=== PATIENT | male | born 1965 | race American Indian/Alaskan Native ===

== ENCOUNTER 2017-11-25 09:04 | Outpatient (CLI) | payer OTHER ==
--- NOTE | 2017-11-25 19:19 | XRay Report ---
FINAL REPORT PROCEDURE: XR SPINE LUMBOSACRAL 2-3V TECHNIQUE: Lumbar spine radiographs, including AP, lateral, and lumbosacral spot views. CPT 18390 HISTORY: Neuropathy. Diabetes. Stroke. COMPARISON: No prior studies are available for comparison. FINDINGS: Alignment: Normal. Vertebral body heights/Disk spaces: Sacralization of L5. Small multilevel osteophytes. Mild L4-5 and L5-S1 disc space narrowing with endplate changes. Fracture(s): None. Facets: Normal. Bone mineralization: Normal. Other: Oval density measuring 13 x 5 mm in the left upper quadrant likely ingested capsule/pill. IMPRESSION: Mild degenerative changes of the lumbar spine.
--- NOTE | 2017-11-25 19:25 | XRay Report ---
FINAL REPORT PROCEDURE: XR KNEE BILAT 1-2V TECHNIQUE: Bilateral knee radiographs, AP and lateral views. HISTORY: Neuropathy. Diabetes. Stroke. COMPARISON: No prior studies are available for comparison. FINDINGS: Right Fracture (s) and/or Dislocation(s): None . Joint space(s): Mild medial and patellofemoral compartment narrowing with small osteophytes. Small patellar enthesophyte. Tibial eminence spurring. 4.5 mm density seen about the medial femoral condyle. Soft tissues: Normal. Bone mineralization: Mild osteopenia. Possible subtle periostitis about the proximal tibia. Foreign bodies: None. Left Fracture (s) and/or Dislocation(s): None . Joint space(s): Mild medial and patellofemoral compartment narrowing with small osteophytes. Small patellar enthesophyte. Tibial eminence spurring. Small joint effusion. Soft tissues: Normal. Bone mineralization: Mild osteopenia. Possible subtle periostitis about the proximal tibia. Foreign bodies: None. IMPRESSION: Relatively symmetric degenerative changes of the bilateral knees. Small left joint effusion. Consider Gage-Stieda lesion of the right knee. Mild osteopenia. Possible subtle periostitis about the proximal tibias bilaterally. Consider bone scan or MRI for further characterization if there is continued clinical concern including concern for subtle infectious/inflammatory or even neoplastic process and if the patient has no contraindication to MRI.
--- NOTE | 2017-11-25 19:28 | XRay Report ---
FINAL REPORT PROCEDURE: XR HIPS BILAT 2V W/PELVIS TECHNIQUE: Bilateral hip radiographs, 2 views each, including AP view of the pelvis. HISTORY: Neuropathy. Diabetes. Strokes. COMPARISON: No prior studies are available for comparison. FINDINGS: Fracture (s) and/or Dislocation(s): None . Joint space(s): Mild narrowing and osteophytes of the bilateral hip joints. Soft tissues: Normal. Bone mineralization: Mild osteopenia Foreign bodies: None. IMPRESSION: Mild osteopenia and degenerative changes of the bilateral hips.
== END 2017-11-25 09:05 | disposition home or self-care (01) ==
LOC: XRAY 09:04
PROVIDERS: ATTEND Internal Medicine
DX: M16.0 Bilateral primary osteoarthritis of hip (principal); M17.0 Bilateral primary osteoarthritis of knee; M85.88 Other specified disorders of bone density and structure, other site; M85.861 Other specified disorders of bone density and structure, right lower leg; M85.862 Other specified disorders of bone density and structure, left lower leg; M47.896 Other spondylosis, lumbar region; E11.40 Type 2 diabetes mellitus with diabetic neuropathy, unspecified; I10 Essential (primary) hypertension; R09.89 Other specified symptoms and signs involving the circulatory and respiratory systems; I63.9 Cerebral infarction, unspecified
CPT/HCPCS: 72100; 73521

== ENCOUNTER 2017-12-02 22:50 | Inpatient (IN) | payer OTHER ==
[2017-12-02 23:49] LABS: Basophils # (Auto) 0.1 K/mm3 (0.0-0.1); Basophils % (Auto) 0.9 % (0.0-1.8); Eosinophils # (Auto) 0.2 K/mm3 (0.0-0.4); Eosinophils % (Auto) 2.8 % (0.0-4.3); Hematocrit 42.2 % (35.5-45.6); Hemoglobin 13.7 gm/dl (11.8-15.2); Lymphocytes # (Auto) 2.7 K/mm3 (1.2-5.4); Lymphocytes % (Auto) 30.8 % (13.4-35.0); Mean Corpuscular HGB Conc 33 % (32-34); Mean Corpuscular Hemoglobin 29 pg (28-32); Mean Corpuscular Volume 89 fl (84-94); Monocytes # (Auto) 0.6 K/mm3 (0.0-0.8); Monocytes % (Auto) 6.7 % (0.0-7.3); Red Blood Count 4.74 M/mm3 (3.65-5.03); Red Cell Distribution Width 15.5 % (13.2-15.2)
[2017-12-02] MEDS ORDERED: NITRO-BID 2% TP ONE (23:54)
[2017-12-03 00:01] LABS: INR 0.84 (0.87-1.13); Platelet Count 205 K/mm3 (140-440)
[2017-12-03 00:02] LABS: Partial Thromboplastin Time 25.5 Sec. (24.2-36.6)
[2017-12-03 00:09] LABS: Alanine Aminotransferase 27 units/L (7-56); Albumin 4.1 g/dL (3.9-5); BUN/Creatinine Ratio 14; Blood Urea Nitrogen 20 mg/dL (9-20); Calcium 8.8 mg/dL (8.4-10.2); Hemolysis Index 8
--- NOTE | 2017-12-03 00:46 | XRay Report ---
FINAL REPORT EXAM: XR CHEST 1V AP HISTORY: chest pain TECHNIQUE: An AP upright view the chest was submitted. FINDINGS: There is elevation the right hemidiaphragm. The heart is mildly enlarged. The lungs are not congested. There are no localized infiltrates or effusions. The skeletal structures do not show any acute changes. IMPRESSION: Elevation of the right hemidiaphragm. No acute infiltrates or congestion.
--- NOTE | 2017-12-03 00:47 | Emergency Department Report ---
ED Chest Pain HPI - General Chief Complaint: Chest Pain Stated Complaint: HIGH BP Time Seen by Provider: 12/02/17 23:11 Source: patient, EMS, old records reviewed (neg stress test 05/2016) Mode of arrival: Stretcher Limitations: No Limitations - History of Present Illness Initial Comments: 52-year-old male with a past medical history hypertension, multiple TIAs, early cholesterol, and diabetes presents to the hospital complaining of chest pain and episode of slurred speech and headache. Patient states he was on the bus and while ambulating he began to have chest pressure described as a 50 pound weight on his chest. Associated shortness of breath, nausea, and vomited 1. Patient also states he had a frontal headache and a episode of slurred speech, and left face heaviness. He was evaluated by the fire truck at the scene and was suggested department if symptoms continued. Patient went to fire department and had a blood pressure 220/120. He states slurred speech has resolved. He continues to have moderate chest pain and heaviness feeling to left side of face. No facial asymmetry noted. Patient took his daily 2 tablets of aspirin 81 mg. - Related Data Previous Rx's Medication Instructions Recorded Last Taken Type AtorvaSTATin [Lipitor] 20 mg PO QHS #30 tablet 05/09/16 Unknown Rx Glimepiride [Amaryl] 1 mg PO QDDIAB #30 tablet 08/18/16 Unknown Rx Hydrochlorothiazide [HCTZ] 25 mg PO QDAY #30 tablet 08/18/16 Unknown Rx amLODIPine [Norvasc] 20 mg PO DAILY #30 tablet 08/18/16 Unknown Rx metFORMIN XR [Glucophage XR] 1,000 mg PO BID #60 tablet 08/18/16 Unknown Rx Allergies Allergy/AdvReac Type Severity Reaction Status Date / Time No Known Allergies Allergy Verified 01/17/15 04:54 Heart Score - HEART Score History: Slightly suspicious EKG: Non-specific Age: 45-65 Risk factors: > 3 risk factors or hx of atherosclerotic disease Troponin: < normal limit HEART Score: 4 ED Review of Systems ROS: Stated complaint: HIGH BP Other details as noted in HPI Comment: All other systems reviewed and negative ED Past Medical Hx - Past Medical History Hx Hypertension: Yes 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) Hx Congestive Heart Failure: No Hx Diabetes: No Hx Asthma: No Hx COPD: No - Social History Smoking Status: Never Smoker Substance Use Type: None - Medications Home Medications: Home Medications Medication Instructions Recorded Confirmed Last Taken Type AtorvaSTATin [Lipitor] 20 mg PO QHS #30 tablet 05/09/16 08/17/16 Unknown Rx Glimepiride [Amaryl] 1 mg PO QDDIAB #30 tablet 08/18/16 Unknown Rx Hydrochlorothiazide [HCTZ] 25 mg PO QDAY #30 tablet 08/18/16 Unknown Rx amLODIPine [Norvasc] 20 mg PO DAILY #30 tablet 08/18/16 Unknown Rx metFORMIN XR [Glucophage XR] 1,000 mg PO BID #60 tablet 08/18/16 Unknown Rx ED Physical Exam - General Limitations: No Limitations - Other Other exam information: General: No limitations, patient is alert in no acute distress Head exam: Atraumatic, normocephalic Eyes exam: Normal appearance, pupils equal reactive to light, extraocular movements intact ENT: Moist mucous membrane, normal oropharynx Neck exam: Normal inspection, full range of motion, no meningismus nontender Respiratory exam: Clear to auscultation bilateral, no wheezes, rales, crackles Cardiovascular: Normal rate and rhythm, normal heart sounds Abdomen: Soft, nondistended, and nontender, with normal bowel sounds, no rebound, or guarding Extremity: Full range of motion normal inspection no deformity Back: Normal Inspection, full range of motion, no tenderness Neurologic: Alert, oriented x3, cranial nerves intact, no facial droop, see NIH stroke scale Psychiatric: normal affect, normal mood Skin: Warm, dry, intact ED Course Vital Signs 12/02/17 12/03/17 12/03/17 23:34 00:57 01:42 Temperature 98.8 F Pulse Rate 58 L 82 84 Respiratory 20 20 Rate Blood Pressure 167/94 168/107 Blood Pressure 167/87 [Left] O2 Sat by Pulse 98 98 Oximetry - Reevaluation(s) Reevaluation #1: 12/03/17 02:04 stable, nitro paste and additional asa given KACIE score - Kacie Score Age > 65: (0) No Aspirin use within the Past 7 Days: (1) Yes 3 or more CAD Risk Factors: (1) Yes 2 or more Angina events in past 24 hrs: (1) Yes Known CAD with more than 50% Stenosis: (0) No Elevated Cardiac Markers: (0) No ST Deviation Greater than 0.5mm: (0) No KACIE Score: 3 ED Medical Decision Making - Lab Data Result diagrams: 12/02/17 23:25 12/02/17 23:25 Lab Results 12/02/17 12/02/17 12/02/17 Range/Units 23:25 23:25 23:25 WBC 8.8 (4.5-11.0) K/mm3 RBC 4.74 (3.65-5.03) M/mm3 Hgb 13.7 (11.8-15.2) gm/dl Hct 42.2 (35.5-45.6) % MCV 89 (84-94) fl MCH 29 (28-32) pg MCHC 33 (32-34) % RDW 15.5 H (13.2-15.2) % Plt Count 205 (140-440) K/mm3 Lymph % (Auto) 30.8 (13.4-35.0) % Toole % (Auto) 6.7 (0.0-7.3) % Eos % (Auto) 2.8 (0.0-4.3) % Baso % (Auto) 0.9 (0.0-1.8) % Lymph # 2.7 (1.2-5.4) K/mm3 Toole # 0.6 (0.0-0.8) K/mm3 Eos # 0.2 (0.0-0.4) K/mm3 Baso # 0.1 (0.0-0.1) K/mm3 Seg Neutrophils % 58.8 (40.0-70.0) % Seg Neutrophils # 5.2 (1.8-7.7) K/mm3 PT 11.9 L (12.2-14.9) Sec. INR 0.84 L (0.87-1.13) APTT 25.5 (24.2-36.6) Sec. Sodium 144 (137-145) mmol/L Potassium 4.1 (3.6-5.0) mmol/L Chloride 104.8 (98-107) mmol/L Carbon Dioxide 25 (22-30) mmol/L Anion Gap 18 mmol/L BUN 20 (9-20) mg/dL Creatinine 1.4 (0.8-1.5) mg/dL Estimated GFR > 60 ml/min BUN/Creatinine Ratio 14 % Glucose 185 H (75-100) mg/dL Calcium 8.8 (8.4-10.2) mg/dL Magnesium 1.90 (1.7-2.3) mg/dL Total Bilirubin < 0.20 (0.1-1.2) mg/dL AST 24 (5-40) units/L ALT 27 (7-56) units/L Alkaline Phosphatase 78 (35-129) units/L Troponin T < 0.010 (0.00-0.029) ng/mL Total Protein 6.7 (6.3-8.2) g/dL Albumin 4.1 (3.9-5) g/dL Albumin/Globulin Ratio 1.6 % - EKG Data -: EKG Interpreted by Me (Leslie) EKG shows normal: sinus rhythm, axis (qrs axis -54), QRS complexes (96), ST-T waves (lat and inv t inv) Rate: normal (90) - EKG Data When compared to previous EKG there are: no significant change (ekg's in past some have lat t wave inversions and borderline t waves inf leads) - Radiology Data Radiology results: report reviewed Read by radiologist Chest x-ray: Elevated right hemidiaphragm no acute findings ct head: IMPRESSION: No evidence of acute stroke or hemorrhage. Remote lacunar infarct noted just above the right thalamus. Bilateral maxillary sinus disease. - Medical Decision Making Plan to admit patient to the hospital for on control of hypertension despite medication noncompliance. Also for chest pain workup. Patient has mild neurologic complaints with only concrete finding of decreased sensation to the right arm and left face. EKG without any significant changes. Troponin is negative 1. - Differential Diagnosis CVA, TIA, neuropathy, NC, unstable angina, atypical chest Critical Care Time: No Critical care attestation.: If time is entered above; I have spent that time in minutes in the direct care of this critically ill patient, excluding procedure time. ED Disposition Clinical Impression: Chest pain, Sensory deficit present, Uncontrolled hypertension, Diabetes, Maxillary sinusitis Disposition: - OP ADMIT IP TO THIS HOSP Is pt being admited?: Yes Condition: Stable Time of Disposition: 02:02 - Assessment Assessment Interval: Baseline - Level of Consciousness 1a. Level of Consciousness: alert - LOC Questions 1b. LOC Questions: answers correctly - LOC Command 1c. LOC Commands: performs tasks correctly - Best Gaze 2. Best Gaze: normal - Visual 3. Visual: no visual loss - Facial Palsy 4. Facial Palsy: normal symmetrical movement - Motor Arm 5b. Motor Arm Right: no drift 5a. Motor Arm Left: no drift - Motor Leg 6a. Motor Leg Left: no drift 6b. Motor Leg Right: no drift - Limb Ataxia 7. Limb Ataxia: absent - Sensory 8. Sensory: mild/moderate sensory loss (decreased sensation to touch left face and right arm) - Best Language 9. Best Language: no aphasia - Dysarthria 10. Dysarthria: normal - Extinction and Inattention 11. Extinction/Inattention: no abnormality - Scoring Total Score: 1 Stroke Severity: Minor Stroke
--- NOTE | 2017-12-03 01:45 | Cat Scan Report ---
FINAL REPORT EXAM: CT HEAD/BRAIN WO CON HISTORY: transient slurred speech, L @ R arm numbness TECHNIQUE: Routine axial imaging was obtained of the brain without IV contrast. There are no previous studies available for comparison. FINDINGS: There is no evidence of acute stroke or hemorrhage. The ventricular system is appropriate in size and is symmetric. There is a remote lacunar infarct just above the right thalamus. Basal cisterns appear normal. The sinuses reveal a polyp in the left max sinus along the opacification of the right max sinus. The mastoid air cells are well pneumatized IMPRESSION: No evidence of acute stroke or hemorrhage. Remote lacunar infarct noted just above the right thalamus. Bilateral maxillary sinus disease.
[2017-12-03] MEDS ORDERED: SODIUM CHLORIDE FLUSH SYRINGE 10 ML IV PRN (03:06)
[2017-12-03] MEDS ORDERED: APRESOLINE IV PRN (03:06)
[2017-12-03] MEDS ORDERED: DULCOLAX PR PRN (03:06)
[2017-12-03] MEDS ORDERED: MILK OF MAGNESIA PO PRN (03:06)
[2017-12-03] MEDS ORDERED: MORPHINE IV PRN (03:06)
--- NOTE | 2017-12-03 03:25 | History and Physical Report ---
History of Present Illness Date of examination: 12/03/17 History of present illness: This is a 52-year-old man history of hypertension, hyperlipidemia, diabetes, neuropathy, TIA, emergency room with complaints of feeling lightheaded, numbness on the left side of the face. Also complaining of chest pain, in the epigastric area which he describes as sensation, intermittent dizziness lasting for 8 minutes, no radiation, intensity 6/10, he can identify exacerbating or relieving factors. He stated that his symptoms when his symptoms started he went to the [employer] station, his blood pressure was 225 systolically. Also complaining of blurry vision Review Of Systems: Constitutional: no weight loss Ears, eyes, nose, mouth and throat: no nasal congestion, no nasal discharge, no sinus pressure, blurry vision, diplopia Neck: No neck pain or rigidity. Cardiovascular: no chest pain, orthopnea, palpitations Respiratory: No shortness of breath, cough Gastrointestinal: no abdominal pain, hematochezia Genitourinary : no hematuria Musculoskeletal: no muscle ache Integumentary: no rash, no pruritis Neurological: no focal weakness Endocrine: no cold or heat intolerance, no polyuria or polydipsia Hematologic/Lymphatic: no easy bruising, no easy bleeding, no gland swelling Allergic/Immunologic: no urticaria, no angioedema. PAST MEDICAL HISTORY; hypertension, hyperlipidemia, diabetes/neuropathy, TIA PAST SURGICAL HISTORY:none SOCIAL HISTORY: Denies alcohol, tobacco, drugs FAMILY HISTORY: hypertension Medications and Allergies Allergies Allergy/AdvReac Type Severity Reaction Status Date / Time No Known Allergies Allergy Verified 01/17/15 04:54 Home Medications Medication Instructions Recorded Confirmed Last Taken Type AtorvaSTATin [Lipitor] 20 mg PO QHS #30 tablet 05/09/16 12/03/17 Unknown Rx Glimepiride [Amaryl] 1 mg PO QDDIAB #30 tablet 08/18/16 12/03/17 Unknown Rx Hydrochlorothiazide [HCTZ] 25 mg PO QDAY #30 tablet 08/18/16 12/03/17 Unknown Rx amLODIPine [Norvasc] 20 mg PO DAILY #30 tablet 08/18/16 12/03/17 Unknown Rx metFORMIN XR [Glucophage XR] 1,000 mg PO BID #60 tablet 08/18/16 12/03/17 Unknown Rx Active Meds: Active Medications Acetaminophen (Tylenol) 650 mg PO Q4H PRN PRN Reason: Pain, Mild (1-3) Aspirin (Aspirin) 325 mg PO QDAY JAMES Bisacodyl (Dulcolax) 10 mg SD QDAY PRN PRN Reason: Constipation Enoxaparin Sodium (Lovenox) 40 mg SUB-Q QDAY@1000 JAMES Hydralazine HCl (Apresoline) 10 mg IV Q6H PRN PRN Reason: Keep SBP between 160-185 mm Hg Magnesium Hydroxide (Milk Of Magnesia) 30 ml PO Q4H PRN PRN Reason: Constipation Morphine Sulfate (Morphine) 2 mg IV Q4H PRN PRN Reason: Pain, Moderate (4-6) Ondansetron HCl (Zofran) 4 mg IV Q8H PRN PRN Reason: N/V unrelieved by Reglan Sodium Chloride (Sodium Chloride Flush Syringe 10 Ml) 10 ml IV PRN PRN PRN Reason: LINE FLUSH Exam - Physical Exam Narrative exam: Gen. appearance: Patient lying in bed, no apparent distress HEENT: Normocephalic, atraumatic, pupils equally round and reactive to light, extraocular movement intact, and no sclericterus,. No JVD or thyromegaly or nodule,neck supple, no carotid bruit ,mucous membranes moist, no exudate or erythema Heart: S1, S2, regular rate and rhythm Lungs: clear , breathing comfortable Abdomen: Positive bowel sounds, nontender, nondistended, no organomegaly Extremity: No edema, cyanosis, clubbing Skin: No rash, nodules, warm, dry Neuro: Oriented 3, cranial nerves II-12 intact, speech is fluent, left leg weakness, decrease sensory on left face - Constitutional Vitals: Temp Pulse Resp BP Pulse Ox 98.8 F 85 20 151/95 98 12/02/17 23:34 12/03/17 03:12 12/03/17 03:12 12/03/17 03:12 12/03/17 03:12 Results - Labs CBC & Chem 7: 12/02/17 23:25 12/02/17 23:25 Labs: Abnormal lab results 12/02/17 12/02/17 12/02/17 Range/Units 23:25 23:25 23:25 RDW 15.5 H (13.2-15.2) % PT 11.9 L (12.2-14.9) Sec. INR 0.84 L (0.87-1.13) Glucose 185 H (75-100) mg/dL - Imaging and Cardiology EKG: image reviewed Chest x-ray: image reviewed CT Scan - head: report reviewed Assessment and Plan Assessment CVA versus hypertensive urgency Hypertension malignant Chest pain Diabetes/neuropathy Hyperlipidemia pLAN Admit to medicine Obtain MRI, carotid Doppler, echo Start aspirin, statin Do neuro checks, consult neurology Cardiac enzymes, stress test, fingersticks insulin sliding scale DVT prophylaxis
[2017-12-03 07:01] LABS: Creatine Kinase MB 3.6 ng/mL (0.0-4.0)
[2017-12-03] MEDS ORDERED: TYLENOL ONE (07:41)
[2017-12-03] MEDS: TYLENOL PO PRN (07:44)
[2017-12-03] MEDS: AMARYL PO SCH (08:55)
[2017-12-03] MEDS: GLUCOPHAGE XR PO SCH ×2 (09:36→21:20)
[2017-12-03] MEDS: ASPIRIN PO SCH (09:36)
[2017-12-03] MEDS: LOVENOX SUB-Q SCH (09:36)
[2017-12-03] MEDS ORDERED: NORVASC PO SCH (10:00)
[2017-12-03] MEDS ORDERED: LOVENOX SUB-Q SCH (10:00)
[2017-12-03 10:36] LABS: Creatine Kinase MB 4.2 ng/mL (0.0-4.0)
[2017-12-03] MEDS ORDERED: ATIVAN IV ONE (15:06)
[2017-12-03] MEDS ORDERED: XANAX PO ONE (16:00)
[2017-12-03] MEDS: HCTZ PO SCH (17:32)
[2017-12-03] MEDS: NEURONTIN PO SCH ×2 (17:32→21:21)
[2017-12-03] MEDS: NORVASC PO SCH (17:33)
[2017-12-03] MEDS: VITAMIN B-6 PO SCH (17:33)
[2017-12-03] MEDS: ZOFRAN IV PRN (17:50)
--- NOTE | 2017-12-03 18:30 | Consultation ---
History of Present Illness Consult date: 12/03/17 Requesting physician: NABEEL LEE Reason for Consult: TIA Chief complaint: sagging left face, numb right leg off and on History of present illness: This 52-year-old right-handed -Citizen Of [place] male states that yesterday at 9: 30 PM he developed blurred vision and sagging of the left side of his face with associated numbness lasting 30 minutes, and numbness of his right leg which is still occurring off and on today. He was lightheaded yesterday. He has been having 2 months of pain in the right leg. He said he has had peripheral neuropathy for the past 2 months which causes freezing of his right arm (has had electrical testing but no mention of carpal tunnel syndrome) and burning in the right hip to his knee since strokes in 2013. He has been taking 2 of an 81 mg size aspirin daily for the past 1.5 years and for a longer time atorvastatin 20 mg daily. He states his blood pressure at home is about 160/ 85. Duplex of carotids today showed less than 50% stenosis and antegrade vertebral flow. He takes gabapentin 300 mg at bedtime for the neuropathy which does not help but makes him sleepy. Sweating makes coldness in his arm and burning in his right leg worse. Blood pressure here was 220/120 becoming later 151/83. 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 denies : smoking, alcohol abuse (none), prescription drug abuse, IV drug use (used cocaine nasally 17 years ago and has been clean since.) Medications and Allergies Allergies Allergy/AdvReac Type Severity Reaction Status Date / Time No Known Allergies Allergy Verified 01/17/15 04:54 Home Medications Medication Instructions Recorded Confirmed Last Taken Type AtorvaSTATin [Lipitor] 20 mg PO QHS #30 tablet 05/09/16 12/03/17 Unknown Rx Glimepiride [Amaryl] 1 mg PO QDDIAB #30 tablet 08/18/16 12/03/17 Unknown Rx Hydrochlorothiazide [HCTZ] 25 mg PO QDAY #30 tablet 08/18/16 12/03/17 Unknown Rx amLODIPine [Norvasc] 20 mg PO DAILY #30 tablet 08/18/16 12/03/17 Unknown Rx metFORMIN XR [Glucophage XR] 1,000 mg PO BID #60 tablet 08/18/16 12/03/17 Unknown Rx Active Meds: Active Medications Acetaminophen (Tylenol) 650 mg PO Q4H PRN PRN Reason: Pain, Mild (1-3) Last Admin: 12/03/17 07:44 Dose: 650 mg Amlodipine Besylate (Norvasc) 10 mg PO QDAY [facility] Last Admin: 12/03/17 17:33 Dose: 10 mg Aspirin (Aspirin) 325 mg PO QDAY [facility] Last Admin: 12/03/17 09:36 Dose: Not Given Atorvastatin Calcium (Lipitor) 40 mg PO QHS [facility] Bisacodyl (Dulcolax) 10 mg TN QDAY PRN PRN Reason: Constipation Enoxaparin Sodium (Lovenox) 40 mg SUB-Q QDAY@1000 [facility] Last Admin: 12/03/17 09:36 Dose: Not Given Gabapentin (Neurontin) 100 mg PO Q8HR [facility] Last Admin: 12/03/17 17:32 Dose: 100 mg Glimepiride (Amaryl) 1 mg PO QDDIAB [facility] Last Admin: 12/03/17 08:55 Dose: Not Given Hydralazine HCl (Apresoline) 10 mg IV Q6H PRN PRN Reason: Keep SBP between 160-185 mm Hg Hydrochlorothiazide (Hctz) 25 mg PO QDAY [facility] Last Admin: 12/03/17 17:32 Dose: 25 mg Lisinopril (Zestril) 20 mg PO BID [facility] Magnesium Hydroxide (Milk Of Magnesia) 30 ml PO Q4H PRN PRN Reason: Constipation Metformin HCl (Glucophage Xr) 1,000 mg PO BID [facility] Last Admin: 12/03/17 09:36 Dose: Not Given Morphine Sulfate (Morphine) 2 mg IV Q4H PRN PRN Reason: Pain, Moderate (4-6) Ondansetron HCl (Zofran) 4 mg IV Q8H PRN PRN Reason: N/V unrelieved by Reglan Last Admin: 12/03/17 17:50 Dose: 4 mg Pyridoxine HCl (Vitamin B-6) 200 mg PO QDAY [facility] Last Admin: 12/03/17 17:33 Dose: 200 mg Sodium Chloride (Sodium Chloride Flush Syringe 10 Ml) 10 ml IV PRN PRN PRN Reason: LINE FLUSH Review of Systems All systems: negative (right occipital headaches commonly with nausea and floaters, orthostatic type dizziness, sleep apnea but is waiting for insurance to start in order to be able to get a CPAP machine. Poor short-term memory but intact remote memory since 2014 strokes.) Physical Examination - Vital Signs Vital Signs: Vital Signs Temp Pulse Resp BP Pulse Ox 98.8 F 58 L 20 167/94 98 12/02/17 23:34 12/02/17 23:34 12/02/17 23:34 12/02/17 23:34 12/02/17 23:34 - Physical Exam Narrative exam: General Appearance: well developed but obese (per BMI) early 50s - Citizen Of [place] male in [facility]. HEENT: atraumatic, normocephalic; no bruits, 2+ Harley without soreness or induration or enlargement, sclerae nonicteric. Oropharynx pink and moist. Neck: supple, no bruits. Heart: no murmur or extra sounds. Extremities: no clubbing, cyanosis or edema. 2+ posterior tibial pulses bilaterally. Neurologic Exam: Mental Status: Awake, alert, oriented X 3, speech is clear, names pen and tip of pen, and abstracts well. Names President and gives Manager Basketball after first name and first letter of last name as prompts, serial 7's are poor but he gives 5+7 = 12, no right-left confusion, gets 2 of 3 objects at 3 minutes, spells WORLD backwards correctly. Cranial Nerves: montes full, no papilledema, could not tell if any spontaneous venous pulsations, PERRLA, EOMs full without nystagmus or diplopia, facial sensation intact to light touch but pinprick is diminished in the right V1-3 divisions, no facial weakness, Carranza is midline, palate is crowded but gags are positive, shoulder shrug is 5 X 2, tongue protrudes midline. Cerebellar: finger to nose and tandem are normal. Sensory: Increased to light touch in right upper arm, pinprick decreased in right arm and below mid calves bilaterally, decreased vibrations in the left toes. Double simultaneous stimulation shows extinction in the right hand. Motor Exam Upper Extremities: no drift or pronation, Saumya intact. Senior Network Security Architect are 5 X 2, tone is normal. No atrophy or fasciculations are noted visually. Motor Exam Lower Extremities: walks well on heels and toes but did not ask him to hop due to stroke question. Saumya slower on the left. Tone is normal. No atrophy or fasciculations are noted visually. Reflexes: Palmomental, snout and jaw jerk are negative. Triceps are 1, biceps are 2 and brachioradialis are 1 bilaterally. René's is negative bilaterally. Knee jerks are 1 and ankle jerks are 2 bilaterally without clonus. Toes are upgoing right and downgoing left to Babinski testing. - Assessment Assessment Interval: Baseline - Level of Consciousness 1a. Level of Consciousness: alert - LOC Questions 1b. LOC Questions: answers correctly - LOC Command 1c. LOC Commands: performs tasks correctly - Best Gaze 2. Best Gaze: normal - Visual 3. Visual: no visual loss - Facial Palsy 4. Facial Palsy: normal symmetrical movement - Motor Arm 5b. Motor Arm Right: no drift - Motor Leg 6a. Motor Leg Left: no drift - Limb Ataxia 7. Limb Ataxia: absent - Sensory 8. Sensory: mild/moderate sensory loss (decreased sensation to touch left face and right arm) - Best Language 9. Best Language: no aphasia - Dysarthria 10. Dysarthria: normal - Extinction and Inattention 11. Extinction/Inattention: no abnormality Results - Laboratory Findings CBC and BMP: 12/02/17 23:25 12/02/17 23:25 Abnormal Lab Findings: Abnormal Labs 12/02/17 12/02/17 12/02/17 23:25 23:25 23:25 RDW 15.5 H PT 11.9 L INR 0.84 L Glucose 185 H CK-MB (CK-2) 12/03/17 09:43 RDW PT INR Glucose CK-MB (CK-2) 4.2 H Assessment and Plan Impression: 1. Possible lacunar infarct 2. Hypertension 3. Hyperlipidemia 4. Common migraine, intractable 5. Sleep apnea Plan: 1. Needs CPAP. Untreated sleep apnea causes hypertension, strokes, headaches and memory problems. 2. Will sedate for MRI/MRA. Echo with bubbles has been ordered. 3. Will start 200 mg daily vitamin B6 for paresthesias. I told him if it helps but then later paresthesias recur, he may then be getting too much B6 and should stop it for a week and then reduce to half dose, that is, 100 mg a day. 4. I have changed his gabapentin to 100 mg size every 8 hours to see if he tolerates it and see if that helps his neuropathy symptoms. 5. Aspirin has been started. Fasting lipids have been ordered. 45 minutes spent today. Explained calf tensing maneuvers for orthostatic symptoms. Thank you for an interesting consultation on this unfortunate early 50s man. Will sign off. Call for any unusual MRI or echo results. I would expect a lacunar infarct, typical for uncontrolled hypertension or diabetes. If he has multiple peripheral lacunar infarcts, he needs a 30 day event monitor for possible PAF.
--- NOTE | 2017-12-03 19:17 | Event Note ---
Date: 12/03/17 Patient was admitted this morning with CVA -like symptoms and hypertensive urgency, not a candidate for TPA, Neuro workup is in progress, neurology consulted Continue current management, follow workup and neurology recommendations
--- NOTE | 2017-12-03 19:58 | Treadmill Report ---
The patient is 52-year-old. This patient to walk on the treadmill by using Zachary protocol. He completed 7 minutes 15 seconds, reaching 79% target heart rate of 133 beats per minute. The test was terminated because of fatigue, shortness of breath and inability to continue to walk. Resting EKG revealed a sinus rhythm with occasional PVCs and left ventricular hypertrophy. No PVCs were noted during exercise. Again, he had PVCs post-exercise. Occasional isolated. The patient did not have any chest pain. No ischemic changes noted up to a heart rate achieved, which is submaximal. Blood pressure increased to 190/115. His resting blood pressure was 160/108. IMPRESSION: 1. Submaximal exercise stress test achieving only 79% of target heart rate. 2. Inconclusive for definite ischemia because of not reaching target heart rate. 3. Hypertensive blood pressure response. 4. If clinically indicated, we can do pharmacological stress testing. 5. The patient has had pharmacological testing done in the past and he does not like the feeling of the medication causing shortness of breath. JOB# [id number] RHEA/BRANDON
[2017-12-03] MEDS: ZESTRIL PO SCH (21:21)
[2017-12-04] MEDS: NEURONTIN PO SCH ×3 (05:05→23:27)
[2017-12-04 06:31] LABS: Chol/HDL Ratio 3.36 %
[2017-12-04] MEDS: AMARYL PO SCH (08:30)
[2017-12-04] MEDS: ZOFRAN IV PRN ×2 (08:30→23:23)
[2017-12-04] MEDS ORDERED: XANAX PO NR (09:00)
[2017-12-04] MEDS: NORVASC PO SCH (11:17)
[2017-12-04] MEDS: LOVENOX SUB-Q SCH (11:17)
[2017-12-04] MEDS: GLUCOPHAGE XR PO SCH ×2 (11:17→23:27)
[2017-12-04] MEDS: ASPIRIN PO SCH (11:17)
[2017-12-04] MEDS: HCTZ PO SCH (11:18)
[2017-12-04] MEDS: VITAMIN B-6 PO SCH (11:18)
[2017-12-04] MEDS: ZESTRIL PO SCH ×2 (11:18→23:27)
[2017-12-04] MEDS ORDERED: ATIVAN IV ONE ×2 (12:05→16:30)
--- NOTE | 2017-12-04 19:54 | Magnetic Resonance Report ---
FINAL REPORT PROCEDURE: MRI brain without contrast. TECHNIQUE: Magnetic resonance imaging of the brain was performed without contrast material. HISTORY: Stroke. COMPARISON: CT head 12/02/2017. FINDINGS: The ventricles are normal in size. There are no mass lesions. There is no intracranial hemorrhage. There are scattered focal areas of abnormal FLAIR signal intensity within the deep white matter and subcortical white matter of both cerebral hemispheres. This likely represents chronic microvascular ischemic change. There is an old lacunar infarct in the right silva radiata. There are no signs of restricted diffusion. There is ossification present along the falx cerebri. There is complete opacification of the right maxillary sinus. There is a large mucous retention cyst in the left maxillary sinus. The mastoid air cells are clear. IMPRESSION: Chronic ischemic white matter disease as described. No evidence of an acute stroke. Bilateral maxillary sinusitis.
--- NOTE | 2017-12-04 20:05 | Magnetic Resonance Report ---
FINAL REPORT PROCEDURE: Magnetic resonance angiogram of the brain without contrast. TECHNIQUE: Axial 3-D [id number] MR angiography of the [place] and brain was performed. The source images were reconstructed in various views using maximum intensity projection. HISTORY: Stroke. COMPARISON: No prior studies are available for comparison. FINDINGS: Both distal internal carotid arteries are patent. Both anterior cerebral arteries are patent. The anterior communicating artery is not definitely visualized. Both middle cerebral arteries are patent. The right posterior communicating artery is patent. The left posterior communicating artery is not definitely visualized. Both distal vertebral arteries are patent. The right posterior inferior cerebellar artery is patent. The left PICA is not definitely visualized. The basilar artery is patent. The anterior inferior cerebellar arteries are not definitely visualized. Both superior cerebellar and both posterior cerebral arteries are patent. There are no signs of aneurysm disease. There is no evidence of a vasculitis. IMPRESSION: No significant abnormality.
--- NOTE | 2017-12-04 20:45 | Progress Note ---
Assessment and Plan Assessment and plan: --Possible CVA ; not a candidate for TPA Neuro workup is in progress, aspirin and statin Physical therapy occupational therapy as needed --Malignant hypertension; significant improvement Continue current antihypertensives and when necessary medications --Chest pain; probably atypical secondary to gastroesophageal reflux disease Status post stress test, Suboptimal , patient did not have pharmacologic part of the test As he doesn't feel comfortable, symptoms significantly improved --Type 2 diabetes mellitus; Accu-Chek sliding scale coverage and ADA diet and insulin as needed --Diabetic neuropathy; continue supportive care --Dyslipidemia stable on lipid-lowering medications Neurology evaluation and recommendations noted no appreciated Physical therapy as needed Follow neuro workup and neurological medications History Interval history: Patient seen and examined medical records reviewed Feels better no new complaints Extensive neuro workup is in progress Vital signs reviewed Hospitalist Physical - Constitutional Vitals: Temp Pulse Resp BP Pulse Ox 98.2 F 93 H 18 127/80 96 12/04/17 20:10 12/04/17 20:10 12/04/17 20:10 12/04/17 20:10 12/04/17 20:10 General appearance: Present: no acute distress, well-nourished, obese - EENT Eyes: Present: PERRL, EOM intact - Neck Neck: Present: supple, normal ROM - Respiratory Respiratory effort: normal Respiratory: negative: rales, rhonchi, wheezing - Cardiovascular Rhythm: regular Heart Sounds: Present: S1 & S2 - Extremities Extremities: no ischemia, No edema - Abdominal General gastrointestinal: soft, non-tender, non-distended, normal bowel sounds - Integumentary Integumentary: Present: clear, warm - Psychiatric Psychiatric: appropriate mood/affect, cooperative - Neurologic Neurologic: CNII-XII intact, moves all extremities Results - Labs CBC & Chem 7: 12/02/17 23:25 12/02/17 23:25 Labs: Laboratory Last Values WBC 8.8 K/mm3 (4.5-11.0) 12/02/17 23:25 RBC 4.74 M/mm3 (3.65-5.03) 12/02/17 23:25 Hgb 13.7 gm/dl (11.8-15.2) 12/02/17 23:25 Hct 42.2 % (35.5-45.6) 12/02/17 23:25 MCV 89 fl (84-94) 12/02/17 23: MCH 29 pg (28-32) 12/02/17 23: MCHC 33 % (32-34) 12/02/17: RDW 15.5 % (13.2-15.2) H 12/02/17 23: Plt Count 205 K/mm3 (140-440) 12/02/17 23: Lymph % (Auto) 30.8 % (13.4-35.0) 12/02/17: [place] % (Auto) 6.7 % (0.0-7.3) 12/02/17: Eos % (Auto) 2.8 % (0.0-4.3) 12/02/17: Baso % (Auto) 0.9 % (0.0-1.8) 12/02/17: Lymph # 2.7 K/mm3 (1.2-5.4) 12/02/17: [place] # 0.6 K/mm3 (0.0-0.8) 12/02/17: Eos # 0.2 K/mm3 (0.0-0.4) 12/02/17: Baso # 0.1 K/mm3 (0.0-0.1) 12/02/17: Seg Neutrophils % 58.8 % (40.0-70.0) 12/02/17: Seg Neutrophils # 5.2 K/mm3 (1.8-7.7) 12/02/17: PT 11.9 Sec. (12.2-14.9) L 12/02/17: INR 0.84 (0.87-1.13) L 12/02/17: APTT 25.5 Sec. (24.2-36.6) 12/02/17 23:25 Sodium 144 mmol/L (137-145) 12/02/17: Potassium 4.1 mmol/L (3.6-5.0) 12/02/17: Chloride 104.8 mmol/L (98-107) 12/02/17: Carbon Dioxide 25 mmol/L (22-30) 12/02/17 23:25 Anion Gap 18 mmol/L 04/02/18 23:25 BUN 20 mg/dL (9-20) 12/02/17 23:25 Creatinine 1.4 mg/dL (0.8-1.5) 12/02/17 23:25 Estimated GFR > 60 ml/min 12/02/17 23:25 BUN/Creatinine Ratio 14 % 12/02/17 23:25 Glucose 185 mg/dL (75-100) H 12/02/17 23:25 POC Glucose 188 (70-105) H 12/04/17 11:14 Calcium 8.8 mg/dL (8.4-10.2) 12/02/17 23:25 Magnesium 1.90 mg/dL (1.7-2.3) 12/02/17 23:25 Total Bilirubin < 0.20 mg/dL (0.1-1.2) 12/02/17 23:25 AST 24 units/L (5-40) 12/02/17 23:25 ALT 27 units/L (7-56) 12/02/17 23:25 Alkaline Phosphatase 78 units/L (35-129) 12/02/17 23:25 Total Creatine Kinase 128 units/L (55-170) 12/03/17 09:43 CK-MB (CK-2) 4.2 ng/mL (0.0-4.0) H 12/03/17 09:43 CK-MB (CK-2) Rel Index 3.2 (0-4) 12/03/17 09:43 Troponin T < 0.010 ng/mL (0.00-0.029) 12/03/17 09:43 Total Protein 6.7 g/dL (6.3-8.2) 12/02/17 23:25 Albumin 4.1 g/dL (3.9-5) 12/02/17 23:25 Albumin/Globulin Ratio 1.6 % 12/02/17 23:25 Triglycerides 124 mg/dL (2-149) 12/04/17 05:03 Cholesterol 148 mg/dL (50-199) 12/04/17 05:03 LDL Cholesterol Direct 97 mg/dL (50-130) 12/04/17 05:03 HDL Cholesterol 44 mg/dL (40-59) 12/04/17 05:03 Cholesterol/HDL Ratio 3.36 % 12/04/17 05:03
[2017-12-04] MEDS: TYLENOL PO PRN (23:33)
[2017-12-05] MEDS: NEURONTIN PO SCH ×2 (06:22→14:00)
[2017-12-05] MEDS: ZOFRAN IV PRN (06:22)
--- NOTE | 2017-12-05 09:01 | Progress Note ---
Assessment and Plan Assessment and plan: MRI; no acute abnormality , bilateral maxillary sinus MRA; normal study CT head without contrast; no evidence of acute CVA or hemorrhage Remote lacunar infarct Bilateral maxillary sinus disease Echocardiogram; junction fraction 50-55%, no shunt noted Carotid Doppler; less than 50% stenosis bilateral Hospitalist Physical - Constitutional Vitals: Temp Pulse Resp BP Pulse Ox 97.6 F 82 220 H 111/81 93 12/05/17 05:09 12/05/17 05:09 12/05/17 06:52 12/05/17 05:09 12/05/17 05:09 General appearance: Present: no acute distress, well-nourished, obese Results - Labs CBC & Chem 7: 12/02/17 23:25 12/02/17 23:25 Labs: Laboratory Last Values WBC 8.8 K/mm3 (4.5-11.0) 12/02/17 23:25 RBC 4.74 M/mm3 (3.65-5.03) 12/02/17 23:25 Hgb 13.7 gm/dl (11.8-15.2) 12/02/17 23:25 Hct 42.2 % (35.5-45.6) 12/02/17 23:25 MCV 89 fl (84-94) 12/02/17 23:25 MCH 29 pg (28-32) 12/02/17 23:25 MCHC 33 % (32-34) 12/02/17 23:25 RDW 15.5 % (13.2-15.2) H 12/02/17 23:25 Plt Count 205 K/mm3 (140-440) 12/02/17 23:25 Lymph % (Auto) 30.8 % (13.4-35.0) 12/02/17 23:25 [place] % (Auto) 6.7 % (0.0-7.3) 12/02/17 23:25 Eos % (Auto) 2.8 % (0.0-4.3) 12/02/17 23:25 Baso % (Auto) 0.9 % (0.0-1.8) 12/02/17 23:25 Lymph # 2.7 K/mm3 (1.2-5.4) 12/02/17 23:25 [place] # 0.6 K/mm3 (0.0-0.8) 12/02/17 23:25 Eos # 0.2 K/mm3 (0.0-0.4) 12/02/17 23:25 Baso # 0.1 K/mm3 (0.0-0.1) 12/02/17 23:25 Seg Neutrophils % 58.8 % (40.0-70.0) 12/02/17 23:25 Seg Neutrophils # 5.2 K/mm3 (1.8-7.7) 12/02/17 23:25 PT 11.9 Sec. (12.2-14.9) L 12/02/17 23:25 INR 0.84 (0.87-1.13) L 12/02/17 23:25 APTT 25.5 Sec. (24.2-36.6) 12/02/17 23:25 Sodium 144 mmol/L (137-145) 12/02/17 23:25 Potassium 4.1 mmol/L (3.6-5.0) 12/02/17 23:25 Chloride 104.8 mmol/L (98-107) 12/02/17 23:25 Carbon Dioxide 25 mmol/L (22-30) 12/02/17 23:25 Anion Gap 18 mmol/L 12/02/17 23:25 BUN 20 mg/dL (9-20) 12/02/17 23:25 Creatinine 1.4 mg/dL (0.8-1.5) 12/02/17 23:25 Estimated GFR > 60 ml/min 12/02/17 23:25 BUN/Creatinine Ratio 14 % 12/02/17 23:25 Glucose 185 mg/dL (75-100) H 12/02/17 23:25 POC Glucose 110 (70-105) H 12/05/17 05:49 Calcium 8.8 mg/dL (8.4-10.2) 12/02/17 23:25 Magnesium 1.90 mg/dL (1.7-2.3) 12/02/17 23:25 Total Bilirubin < 0.20 mg/dL (0.1-1.2) 12/02/17 23:25 AST 24 units/L (5-40) 12/02/17 23:25 ALT 27 units/L (7-56) 12/02/17 23:25 Alkaline Phosphatase 78 units/L (35-129) 12/02/17 23:25 Total Creatine Kinase 128 units/L (55-170) 12/03/17 09:43 CK-MB (CK-2) 4.2 ng/mL (0.0-4.0) H 12/03/17 09:43 CK-MB (CK-2) Rel Index 3.2 (0-4) 12/03/17 09:43 Troponin T < 0.010 ng/mL (0.00-0.029) 12/03/17 09:43 Total Protein 6.7 g/dL (6.3-8.2) 12/02/17 23:25 Albumin 4.1 g/dL (3.9-5) 12/02/17 23:25 Albumin/Globulin Ratio 1.6 % 12/02/17 23:25 Triglycerides 124 mg/dL (2-149) 12/04/17 05:03 Cholesterol 148 mg/dL (50-199) 12/04/17 05:03 LDL Cholesterol Direct 97 mg/dL (50-130) 12/04/17 05:03 HDL Cholesterol 44 mg/dL (40-59) 12/04/17 05:03 Cholesterol/HDL Ratio 3.36 % 12/04/17 05:03
[2017-12-05] MEDS: GLUCOPHAGE XR PO SCH (10:21)
[2017-12-05] MEDS: VITAMIN B-6 PO SCH (10:21)
[2017-12-05] MEDS: ASPIRIN PO SCH (10:21)
[2017-12-05] MEDS: AMARYL PO SCH (10:22)
[2017-12-05] MEDS: HCTZ PO SCH (10:23)
[2017-12-05] MEDS: LOVENOX SUB-Q SCH (10:23)
[2017-12-05] MEDS: ZESTRIL PO SCH (10:24)
[2017-12-05] MEDS: NORVASC PO SCH (10:25)
--- NOTE | 2017-12-05 13:46 | Discharge Summary ---
Providers - Providers Date of Admission: 12/03/17 03:09 Date of discharge: 12/05/17 Attending physician: NABEEL LEE 12/03/17 03:09 Occupational Therapy Evaluate and Treat [CONS] Routine Comment: Reason For Exam: Neuro deficits Physical Therapy Evaluation and Treat [CONS] Routine Comment: Reason For Exam: Neuro deficits 12/03/17 06:40 Consult to Physician [CONS] Routine Comment: LEFT MESSAGE AT EXT [id number] Consulting Provider: JOHN JONES Physician Instructions: Reason For Exam: cva Primary care physician: JASVIR ROSADO Hospitalization Reason for admission: chest pain/facial droop and numbness/TIA Condition: Stable Pertinent studies: MRI; no acute abnormality , bilateral maxillary sinus MRA; normal study CT head without contrast; no evidence of acute CVA or hemorrhage Remote lacunar infarct Bilateral maxillary sinus disease Echocardiogram; junction fraction 50-55%, no shunt noted Carotid Doppler; less than 50% stenosis bilateral Exercise stress test; suboptimal study, patient did not complete pharmacologic testing Hospital course: Very pleasant 52-year-old male patient with significant history of hypertension and diabetes mellitus neuropathy TIA in the past, hyperlipidemia was admitted through emergency room with the left-sided facial numbness and droop and intermittent dizziness. Patient was initially evaluated admitted to the hospital had extensive neuro workup as mentioned above which was negative Patient was also seen and evaluated by neurologist, medications for optimized Patient's symptoms completely resolved, obviously secondary to TIA. Management with aspirin and statin physical therapy and occupational therapy. Patient also had chest pain at the time of admission, underwent exercise stress test which was suboptimal study As patient was not comfortable doing better pharmacologic stress Patient's symptoms significantly improved with medical management Today he is comfortable no new complaints Vital signs stable [id number] evaluation and physical examination prior to discharge did not show any new changes Hemodynamically and clinically stable for discharge Advised to follow private neurologist for further evaluation and management Patient is hemodynamically stable at discharge Discharge diagnosis; --Transient ischemic attack; TIA --Strokelike symptoms; not a candidate for TPA. Neuro workup negative Acute CVA ruled out --Maxillary sinusitis --Malignant hypertension --Atypical chest pain --Chest pain probably secondary to costochondritis --Dyslipidemia --Diabetic neuropathy --Type 2 diabetes mellitus --Obesity; BMI 38.5 Disposition: - TO HOME OR SELFCARE Time spent for discharge: 32 min Core Measure Documentation - Palliative Care Palliative Care/ Comfort Measures: Not Applicable - Core Measures Any of the following diagnoses?: none Exam - Constitutional Vitals: Temp Pulse Resp BP Pulse Ox 97.6 F 84 20 118/76 96 12/05/17 05:09 12/05/17 12:00 12/05/17 10:00 12/05/17 10:25 12/05/17 10:00 General appearance: Present: no acute distress, well-nourished - EENT Eyes: Present: PERRL, EOM intact - Neck Neck: Present: supple, normal ROM - Respiratory Respiratory effort: normal Respiratory: negative: rales, rhonchi, wheezing - Cardiovascular Rhythm: regular Heart Sounds: Present: S1 & S2 - Extremities Extremities: no ischemia, No edema - Abdominal General gastrointestinal: Present: soft, non-tender, non-distended, normal bowel sounds - Integumentary Integumentary: Present: clear, warm - Musculoskeletal Musculoskeletal: strength equal bilaterally, generalized weakness - Psychiatric Psychiatric: appropriate mood/affect, cooperative - Neurologic Neurologic: CNII-XII intact, moves all extremities Plan Activity: advance as tolerated Diet: low salt, diabetic Additional Instructions: Advised to see private neurologist in 1-2 weeks Follow up with: JASVIR ROSADO MD [Primary Care Provider] - 3-5 Days JAMMIE LOPEZ MD [Staff Physician] - 7 Days Prescriptions: Amoxicillin/K Clav Tab [Augmentin 875 mg] 1 tab PO Q12HR #20 tab Aspirin EC [Aspirin Enteric Coated TAB] 81 mg PO QDAY #30 tablet. Gabapentin [Neurontin] 100 mg PO Q8HR #60 capsule Lisinopril [Zestril TAB] 20 mg PO BID #60 tablet Pyridoxine [Vitamin B-6] 200 mg PO QDAY #7 tablet Pyridoxine HCl [Vitamin B-6] 100 mg PO DAILY #30 tablet
[2017-12-05 18:21] VITALS: BP 112/78
== END 2017-12-05 18:15 | disposition home or self-care (01) | DRG 69 ==
LOC: ED 22:50 → 4A 12-03 03:09
PROVIDERS: ADMIT Internal Medicine; ATTEND Internal Medicine
DX: G45.9 Transient cerebral ischemic attack, unspecified (principal); I16.0 Hypertensive urgency; I10 Essential (primary) hypertension; E11.40 Type 2 diabetes mellitus with diabetic neuropathy, unspecified; J01.00 Acute maxillary sinusitis, unspecified; M94.0 Chondrocostal junction syndrome [Tietze]; E78.5 Hyperlipidemia, unspecified; G43.909 Migraine, unspecified, not intractable, without status migrainosus; G47.30 Sleep apnea, unspecified; E11.21 Type 2 diabetes mellitus with diabetic nephropathy; E66.9 Obesity, unspecified; Z68.38 Body mass index [BMI] 38.0-38.9, adult; Z82.49 Family history of ischemic heart disease and other diseases of the circulatory system
CPT/HCPCS: 36415; 70450; 70544; 70551; 71045; 80053; 80061; 82550; 82553; 82962; 83735; 84484; 85025; 85610; 85730; 93005; 93010; 93017; 93306; 93880; A9270-GY; J1650; J2060; J2270; J2405

== ENCOUNTER 2017-12-06 01:59 | Observation (INO) | payer OTHER ==
[2017-12-06] MEDS ORDERED: ASPIRIN PO ONE (02:43)
[2017-12-06 03:25] LABS: Basophils # (Auto) 0.1 K/mm3 (0.0-0.1); Basophils % (Auto) 0.9 % (0.0-1.8); Eosinophils # (Auto) 0.4 K/mm3 (0.0-0.4); Eosinophils % (Auto) 3.6 % (0.0-4.3); Hemoglobin 15.6 gm/dl (11.8-15.2); Lymphocytes # (Auto) 3.7 K/mm3 (1.2-5.4); Mean Corpuscular HGB Conc 34 % (32-34); Mean Corpuscular Hemoglobin 29 pg (28-32); Mean Corpuscular Volume 87 fl (84-94); Monocytes # (Auto) 0.9 K/mm3 (0.0-0.8); Monocytes % (Auto) 8.4 % (0.0-7.3); Red Blood Count 5.32 M/mm3 (3.65-5.03); Red Cell Distribution Width 15.2 % (13.2-15.2)
[2017-12-06 03:26] LABS: Platelet Count 203 K/mm3 (140-440)
[2017-12-06 03:54] LABS: BUN/Creatinine Ratio 17; Blood Urea Nitrogen 20 mg/dL (9-20); Calcium 9.2 mg/dL (8.4-10.2); Hemolysis Index 21
[2017-12-06 04:03] LABS: Bilirubin,Urine NEG (Negative); Blood,Urine NEG (Negative); Color,Urine Yellow (Yellow); Protein,Urine <15 mg/dL mg/dL (Negative); Urobilinogen,Urine < 2.0 mg/dL (<2.0)
[2017-12-06 04:06] LABS: WBC,Urine < 1.0 /HPF (0.0-6.0)
[2017-12-06] MEDS ORDERED: NITROSTAT SL PRN (06:45)
--- NOTE | 2017-12-06 06:46 | Emergency Department Report ---
ED General Adult HPI - General Chief complaint: Chest Pain Stated complaint: CP Time Seen by Provider: 12/06/17 06:39 Source: patient Mode of arrival: Ambulatory Limitations: No Limitations - History of Present Illness Initial comments: Patient complains of left-sided chest pain does radiate into his left shoulder that started after being discharged from the hospital yesterday. Patient states chest pain is sharp in nature and intermittent as well. Denies anything making it better or worse. -: Sudden Location: chest Radiation: other (left shoulder) Severity scale (0 -10): 8 Quality: sharp Consistency: intermittent Improves with: none Worsens with: none Associated Symptoms: nausea/vomiting Treatments Prior to Arrival: none - Related Data Previous Rx's Medication Instructions Recorded Last Taken Type AtorvaSTATin [Lipitor] 20 mg PO QHS #30 tablet 05/09/16 Unknown Rx Glimepiride [Amaryl] 1 mg PO QDDIAB #30 tablet 08/18/16 Unknown Rx Hydrochlorothiazide [HCTZ] 25 mg PO QDAY #30 tablet 08/18/16 Unknown Rx amLODIPine [Norvasc] 20 mg PO DAILY #30 tablet 08/18/16 Unknown Rx Amoxicillin/K Clav Tab [Augmentin 1 tab PO Q12HR #20 tab 12/05/17 Unknown Rx 875 mg] Aspirin EC [Aspirin Enteric Coated 81 mg PO QDAY #30 tablet. 12/05/17 Unknown Rx TAB] Gabapentin [Neurontin] 100 mg PO Q8HR #60 capsule 12/05/17 Unknown Rx Lisinopril [Zestril TAB] 20 mg PO BID #60 tablet 12/05/17 Unknown Rx Pyridoxine HCl [Vitamin B-6] 100 mg PO DAILY #30 tablet 12/05/17 Unknown Rx Pyridoxine [Vitamin B-6] 200 mg PO QDAY #7 tablet 12/05/17 Unknown Rx Allergies Allergy/AdvReac Type Severity Reaction Status Date / Time No Known Allergies Allergy Verified 01/17/15 04:54 ED Review of Systems ROS: Stated complaint: CP Other details as noted in HPI ED Past Medical Hx - Past Medical History Previous Medical History?: Yes Hx Hypertension: Yes 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) Hx Congestive Heart Failure: No Hx Diabetes: No Hx Asthma: No Hx COPD: No - Surgical History Past Surgical History?: Yes Additional Surgical History: chest cavity put in - Social History Smoking Status: Never Smoker - Medications Home Medications: Home Medications Medication Instructions Recorded Confirmed Last Taken Type AtorvaSTATin [Lipitor] 20 mg PO QHS #30 tablet 05/09/16 12/03/17 Unknown Rx Glimepiride [Amaryl] 1 mg PO QDDIAB #30 tablet 08/18/16 12/03/17 Unknown Rx Hydrochlorothiazide [HCTZ] 25 mg PO QDAY #30 tablet 08/18/16 12/03/17 Unknown Rx amLODIPine [Norvasc] 20 mg PO DAILY #30 tablet 08/18/16 12/03/17 Unknown Rx Amoxicillin/K Clav Tab [Augmentin 1 tab PO Q12HR #20 tab 12/05/17 Unknown Rx 875 mg] Aspirin EC [Aspirin Enteric Coated 81 mg PO QDAY #30 tablet. 12/05/17 Unknown Rx TAB] Gabapentin [Neurontin] 100 mg PO Q8HR #60 capsule 12/05/17 Unknown Rx Lisinopril [Zestril TAB] 20 mg PO BID #60 tablet 12/05/17 Unknown Rx Pyridoxine HCl [Vitamin B-6] 100 mg PO DAILY #30 tablet 12/05/17 Unknown Rx Pyridoxine [Vitamin B-6] 200 mg PO QDAY #7 tablet 12/05/17 Unknown Rx ED Physical Exam - General Limitations: No Limitations ED Course Vital Signs 12/06/17 12/06/17 12/06/17 02:24 02:38 06:32 Temperature 98.4 F Pulse Rate 56 L 79 87 Respiratory 18 14 Rate Blood Pressure 144/93 144/93 Blood Pressure [Left] O2 Sat by Pulse 95 96 Oximetry 12/06/17 12/06/17 12/06/17 06:35 06:46 06:53 Temperature 98.1 F Pulse Rate 82 79 82 Respiratory 14 17 Rate Blood Pressure 125/90 125/90 Blood Pressure 125/90 [Left] O2 Sat by Pulse 96 98 Oximetry ED Medical Decision Making - Lab Data Result diagrams: 12/06/17 03:01 12/06/17 03:01 - EKG Data Rate: normal - EKG Data Interpretation: nonspecific ST-T wave elisabeth, other (normal sinus rhythm with a rate of 80 with PVCs and LVH. Nonspecific ST-T wave abnormalities) - Medical Decision Making Discussed plan of care with patient. Patient had relief of chest pain with nitroglycerin. Patient's chart was reviewed from discharged yesterday. Initially that the patient had a SUB optimal stress tests Critical care attestation.: If time is entered above; I have spent that time in minutes in the direct care of this critically ill patient, excluding procedure time. ED Disposition Clinical Impression: Chest pain Disposition: OP ADMIT IP TO THIS HOSP Is pt being admited?: Yes Does the pt Need Aspirin: Yes Condition: Fair Instructions: Chest Pain (ED) Time of Disposition: 07:50
[2017-12-06] MEDS ORDERED: ASPIRIN ONE (06:50)
--- NOTE | 2017-12-06 09:33 | History and Physical Report ---
History of Present Illness Date of examination: 12/06/17 Date of admission: 12/06/17 Chief complaint: chest pain History of present illness: 52-year-old male patient was admitted recently with the CVA-like symptoms and chest pain Extensively evaluated, had a stress test which was suboptimal as patient was not comfortable continuing the beta pharmacologic part of the stress test Neuro workup is negative, evaluated by neurology was discharged yesterday with medications Today he presented to the emergency room with chest pain, reporting that he wants to do the stress test again Chest pain 5-6/10, intermittent, no radiation not associated with nausea vomiting or diaphoresis No aggravating or relieving symptoms 2 sets of cardiac enzymes negative, EKG no acute ST-T changes Past History Past Medical History: hypertension, hyperlipidemia, other (TIA, sinusitis) Past Surgical History: No surgical history Social history: lives with family, full code. denies: smoking, alcohol abuse, prescription drug abuse Family history: hypertension Medications and Allergies Allergies Allergy/AdvReac Type Severity Reaction Status Date / Time No Known Allergies Allergy Verified 01/17/15 04:54 Home Medications Medication Instructions Recorded Confirmed Last Taken Type AtorvaSTATin [Lipitor] 20 mg PO QHS #30 tablet 05/09/16 12/03/17 Unknown Rx Glimepiride [Amaryl] 1 mg PO QDDIAB #30 tablet 08/18/16 12/03/17 Unknown Rx Hydrochlorothiazide [HCTZ] 25 mg PO QDAY #30 tablet 08/18/16 12/03/17 Unknown Rx amLODIPine [Norvasc] 20 mg PO DAILY #30 tablet 08/18/16 12/03/17 Unknown Rx Amoxicillin/K Clav Tab [Augmentin 1 tab PO Q12HR #20 tab 12/05/17 Unknown Rx 875 mg] Aspirin EC [Aspirin Enteric Coated 81 mg PO QDAY #30 tablet. 12/05/17 Unknown Rx TAB] Gabapentin [Neurontin] 100 mg PO Q8HR #60 capsule 12/05/17 Unknown Rx Lisinopril [Zestril TAB] 20 mg PO BID #60 tablet 12/05/17 Unknown Rx Pyridoxine HCl [Vitamin B-6] 100 mg PO DAILY #30 tablet 12/05/17 Unknown Rx Pyridoxine [Vitamin B-6] 200 mg PO QDAY #7 tablet 12/05/17 Unknown Rx Active Meds: Active Medications Nitroglycerin (Nitrostat) 0.4 mg SL .Q5MIN PRN PRN Reason: Chest Pain Last Admin: 12/06/17 06:53 Dose: 0.4 mg Review of Systems Constitutional: no weight loss, no weight gain, no anorexia, no fatigue Ears, nose, mouth and throat: other (sinusitis), no nasal congestion, no nasal discharge Cardiovascular: chest pain, no orthopnea, no palpitations, no shortness of breath Respiratory: no cough, no shortness of breath Gastrointestinal: no abdominal pain, no nausea, no vomiting Genitourinary Male: no hematuria, no flank pain Musculoskeletal: no myalgias, no arthritis Integumentary: no rash, no lesions Psychiatric: no anxiety, no depression Endocrine: no polydipsia, no polyuria Hematologic/Lymphatic: no easy bruising, no easy bleeding Allergic/Immunologic: no urticaria, no allergic rhinitis Exam - Constitutional Vitals: Temp Pulse Resp BP Pulse Ox 98.1 F 82 17 125/90 98 12/06/17 06:35 12/06/17 06:53 12/06/17 06:46 12/06/17 06:53 12/06/17 06:46 General appearance: Present: no acute distress, well-nourished - EENT Eyes: Present: PERRL, EOM intact - Neck Neck: Present: supple, normal ROM - Respiratory Respiratory effort: normal Respiratory: negative: rales, rhonchi, wheezing - Cardiovascular Rhythm: regular Heart Sounds: Present: S1 & S2 - Extremities Extremities: no ischemia, No edema - Abdominal General gastrointestinal: Present: soft, non-tender, non-distended, normal bowel sounds - Integumentary Integumentary: Present: clear, warm - Musculoskeletal Musculoskeletal: strength equal bilaterally - Psychiatric Psychiatric: appropriate mood/affect, cooperative - Neurologic Neurologic: CNII-XII intact, moves all extremities Results - Labs CBC & Chem 7: 12/06/17 03:01 12/06/17 03:01 Labs: Abnormal lab results 12/06/17 12/06/17 12/06/17 Range/Units 02:35 03:01 03:01 RBC 5.32 H (3.65-5.03) M/mm3 Hgb 15.6 H (11.8-15.2) gm/dl Hct 46.0 H (35.5-45.6) % Orange % (Auto) 8.4 H (0.0-7.3) % Orange # 0.9 H (0.0-0.8) K/mm3 Glucose 127 H (75-100) mg/dL POC Glucose 134 H (70-105) 12/06/17 Range/Units 08:44 RBC (3.65-5.03) M/mm3 Hgb (11.8-15.2) gm/dl Hct (35.5-45.6) % Orange % (Auto) (0.0-7.3) % Orange # (0.0-0.8) K/mm3 Glucose (75-100) mg/dL POC Glucose 122 H (70-105) Assessment and Plan --Chest pain; possible coronary artery disease Serial cardiac enzymes, serial EKG Aspirin beta blockers and nitrates and statins Stress test, cardiology evaluation --Hypertension; moderate control Continue current antihypertensives when necessary medications --Dyslipidemia; continue lipid-lowering medications --Type 2 diabetes mellitus; Accu-Chek sliding scale coverage and ADA diet and oral hypoglycemics --Recent TIA; continue aspirin and statin --DVT prophylaxis; Lovenox
[2017-12-06] MEDS ORDERED: LEXISCAN IV ONE ×2 (09:41→09:44)
[2017-12-06] MEDS ORDERED: VITAMIN B-6 PO SCH (12:00)
[2017-12-06] MEDS ORDERED: HCTZ PO SCH (12:00)
[2017-12-06] MEDS ORDERED: AUGMENTIN 875 MG PO SCH (12:00)
[2017-12-06] MEDS ORDERED: ZESTRIL PO SCH (12:00)
[2017-12-06] MEDS ORDERED: NORVASC PO SCH (12:00)
[2017-12-06] MEDS ORDERED: HALFPRIN EC PO SCH (12:00)
[2017-12-06] MEDS ORDERED: HCTZ ONE (13:09)
[2017-12-06] MEDS ORDERED: ZESTRIL ONE (13:10)
[2017-12-06] MEDS ORDERED: NORVASC ONE (13:10)
[2017-12-06 13:40] VITALS: BP 143/93
--- NOTE | 2017-12-06 13:53 | Discharge Summary ---
Providers - Providers Date of Admission: 12/06/17 08:20 Date of discharge: 12/06/17 Attending physician: NABEEL LEE Primary care physician: [employer] Hospitalization Reason for admission: chest pain Condition: Fair Pertinent studies: Stress test negative Echocardiogram; 12/03/2017; LVEF 50-55%, moderate LVH Hospital course: 52-year-old male patient was admitted recently with CVA-like symptoms and chest pain Extensively evaluated, had a stress test which was suboptimal as patient was not comfortable continuing the pharmacologic part of the stress test Neuro workup is negative, evaluated by neurology was discharged yesterday with medications Today he presented to the emergency room with chest pain, reporting that he wants to do the stress test again Chest pain 5-6/10, intermittent, no radiation not associated with nausea vomiting or diaphoresis 2 sets of cardiac enzymes negative, EKG no acute ST-T changes He was admitted to the hospital subsequently underwent Lexiscan stress test; negative for reversible ischemia Echocardiogram done on 12/03/2017; ejection fraction 50-55%, LVH Patient advised to continue his home medications Chest pain probably secondary to gastroesophageal reflux disease Prescription for Pepcid and pain medications were given Patient needs to see cardiology for extensive outpatient evaluation should he get recurrent chest pain The time of discharge patient is hemodynamically and clinically stable Discharge diagnoses; Atypical chest pain; probably secondary to gastroesophageal reflux disease Stress test negative GERD Sinusitis Recent TIA Hypertension Dyslipidemia 2diabetes mellitus Diabetic neuropathy Disposition: DC- TO HOME OR SELFCARE Time spent for discharge: 31 min Core Measure Documentation - Palliative Care Palliative Care/ Comfort Measures: Not Applicable - Core Measures Any of the following diagnoses?: none Exam - Constitutional Vitals: Temp Pulse Resp BP Pulse Ox 98.1 F 86 17 143/93 98 12/06/17 06:35 12/06/17 13:39 12/06/17 06:46 12/06/17 13:39 12/06/17 06:46 General appearance: Present: no acute distress, well-nourished - EENT Eyes: Present: PERRL, EOM intact - Neck Neck: Present: supple, normal ROM - Respiratory Respiratory effort: normal Respiratory: bilateral: diminished, negative: rales, rhonchi, wheezing - Cardiovascular Rhythm: regular Heart Sounds: Present: S1 & S2 - Extremities Extremities: no ischemia, No edema - Abdominal General gastrointestinal: Present: soft, non-tender, non-distended, normal bowel sounds - Integumentary Integumentary: Present: clear, warm - Musculoskeletal Musculoskeletal: strength equal bilaterally - Psychiatric Psychiatric: appropriate mood/affect, cooperative - Neurologic Neurologic: CNII-XII intact, moves all extremities Plan Activity: no restrictions Diet: low salt, diabetic Additional Instructions: If You have chest pain or shortness of breath contact M.D. or go to the emergency room Follow up with: PRIMARY MD BREE [Primary Care Provider] - 7 Days BRAYAN WILKINSON MD [Staff Physician] - 7 Days Prescriptions: Famotidine [Pepcid] 20 mg PO BID #20 tablet oxyCODONE /ACETAMINOPHEN [Percocet 5/325] 1 tab PO QHS PRN #5 tablet PRN Reason: Pain
[2017-12-06] MEDS ORDERED: NEURONTIN PO SCH (14:00)
--- NOTE | 2017-12-06 22:00 | Treadmill Report ---
NUCLEAR PERFUSION SCAN REFERRING PHYSICIAN: Nay Mckeon MD. PROTOCOL: The patient was brought to the stress lab in postoperative state, given 10 mCi of technetium 99m at rest. The patient underwent rest imaging. The patient underwent Lexiscan stress test per standard protocol. At peak stress, the patient was given 26 mCi of technetium. Shortly thereafter, the patient underwent stress imaging. Raw imaging reveals mild GI artifact and mild motion artifact. Technically somewhat difficult study. Grossly no evidence of significant fixed or reversible perfusion defects suggestive of prior infarction or ischemia. Gated wall motion reveals normal systolic thickening, calculated ejection fraction of 51%. No TID. CONCLUSIONS: 1 . Technically difficult study, but probably grossly normal without evidence of significant degree of ischemia or prior infarction. 2. Normal left ventricular systolic performance with a calculated ejection fraction of 51%. No TID. JOB# [id number] SBDavid/BRANDON
[2017-12-07] MEDS ORDERED: AMARYL PO SCH (08:00)
== END 2017-12-06 14:00 | disposition home or self-care (01) ==
LOC: ED 01:59 → 3A 08:20
PROVIDERS: ADMIT Internal Medicine; ATTEND Internal Medicine
DX: R07.89 Other chest pain (principal); I10 Essential (primary) hypertension; E78.5 Hyperlipidemia, unspecified; K21.9 Gastro-esophageal reflux disease without esophagitis; E11.40 Type 2 diabetes mellitus with diabetic neuropathy, unspecified; J32.9 Chronic sinusitis, unspecified; Z86.73 Personal history of transient ischemic attack (TIA), and cerebral infarction without residual deficits; Z82.49 Family history of ischemic heart disease and other diseases of the circulatory system
CPT/HCPCS: 36415; 78452; 80048; 81001; 82962; 84484; 85025; 93005; 93010; 93017; 99285; A9502; G0378; J2785